=== PATIENT | female | born 1985 | race Asian ===

== ENCOUNTER 2016-11-25 19:04 | Inpatient (IN) | payer OTHER, MEDICAID ==
[~2016-11-25] VITALS: Ht 149.9 cm; Wt 66.0 kg
[~2016-11-25 19:04] MED LIST: IBUP-1222 PO; OXYC-302 PO
[2016-11-25 19:12] VITALS: BP 135/76
[2016-11-25] MEDS ORDERED: NEWBORN KIT ONE (19:22)
[2016-11-25] MEDS ORDERED: LIDOCAINE 1%, 20ML ONE (19:22)
[2016-11-25] MEDS ORDERED: FENTANYL PF 100 MCG/2ML ONE ×2 (19:22→20:20)
[2016-11-25] MEDS ORDERED: MISOPROSTOL 200 MCG TABLET ONE (19:22)
[2016-11-25] MEDS ORDERED: OXYTOCIN 30U/ 0.9% NaCL 500ML 500 ML ONE ×2 (19:23→22:47)
[2016-11-25] MEDS ORDERED: OXYTOCIN 30U/ 0.9% NaCL 500ML 500 ML IV ONE (19:24)
[2016-11-25] MEDS: D5%-LACTATED RINGERS 1,000 ML IV SCH (19:24)
[2016-11-25] MEDS: LACTATED RINGERS 1,000 ML IV SCH ×3 (19:24→20:52)
[2016-11-25] MEDS ORDERED: ONDANSETRON 2MG/ML, 2ML IVPush PRN (19:30)
[2016-11-25] MEDS ORDERED: CALCIUM CARBONATE 500 MG TAB.CHEW PO PRN ×2 (19:30→22:30)
[2016-11-25] MEDS ORDERED: FENTANYL PF 100 MCG/2ML IVPush PRN (19:30)
[2016-11-25] MEDS ORDERED: FENTANYL PF 100 MCG/2ML IV PRN (19:30)
[2016-11-25] MEDS ORDERED: TERBUTALINE 1 MG/ML, 1ML IVPush PRN (19:30)
[2016-11-25 20:05] LABS: HEMOGLOBIN 12.1 g/dL (11.7-16.4)
[2016-11-25] MEDS ORDERED: FENTANYL/BUPIV./NS/PF 250 ML EPIDCONT ONE ×2 (20:19→20:20)
[2016-11-25] MEDS ORDERED: BUPIVACAINE/PF 0.25% ONE (20:19)
[2016-11-25] MEDS ORDERED: BUPIVACAINE 0.25% ONE (20:20)
[2016-11-25] MEDS ORDERED: FENTANYL/BUPIV./NS/PF 250 ML EPIDCONT SCH (20:52)
[2016-11-25] MEDS ORDERED: NALOXONE 0.4 MG/ML, 1ML IVPush PRN (21:00)
[2016-11-25] MEDS ORDERED: EPHEDRINE 50 MG/ML, 1ML IVPush PRN (21:00)
[2016-11-25] MEDS ORDERED: LACTATED RINGERS 1,000 ML IVBOLUS PRN (21:00)
[2016-11-25] MEDS: OXYTOCIN 30U/ 0.9% NaCL 500ML 500 ML IV SCH (22:25)
[2016-11-25] MEDS ORDERED: MISOPROSTOL 200 MCG TABLET PR PRN (22:30)
[2016-11-25] MEDS ORDERED: ONDANSETRON 2MG/ML, 2ML IV PRN (22:30)
[2016-11-25] MEDS ORDERED: OXYcodone/APAP 5/325MG TABLET PO PRN ×2 (22:30)
[2016-11-25] MEDS ORDERED: ONDANSETRON 2MG/ML, 2ML ONE (22:44)
[2016-11-26 00:45] VITALS: BP 106/62
[2016-11-26] MEDS: LACTATED RINGERS 1,000 ML IV SCH ×3 (02:22→12:52)
[2016-11-26] MEDS: IBUPROFEN 600 MG TABLET PO PRN ×2 (03:18→09:11)
[2016-11-26] MEDS: D5%-LACTATED RINGERS 1,000 ML IV SCH ×2 (03:24→11:24)
[2016-11-26 03:30] VITALS: BP 116/62
[2016-11-26 06:11] LABS: HEMOGLOBIN 11.1 g/dL (11.7-16.4)
[2016-11-26 08:10] VITALS: BP 116/68
[2016-11-26] MEDS: OXYTOCIN 30U/ 0.9% NaCL 500ML 500 ML IV SCH (08:25)
[2016-11-26] MEDS: PRENATAL VIT/IRON/FA 1 EACH TABLET PO SCH (09:11)
[2016-11-26] MEDS: DOCUSATE 100 MG CAPSULE PO PRN (09:11)
[2016-11-26 12:05] VITALS: BP 111/67
[2016-11-26 16:00] VITALS: BP 115/68
[2016-11-26 20:20] VITALS: BP 116/73
[2016-11-27 08:15] VITALS: BP 116/63
[2016-11-27] MEDS: DOCUSATE 100 MG CAPSULE PO PRN (08:43)
[2016-11-27] MEDS: PRENATAL VIT/IRON/FA 1 EACH TABLET PO SCH (08:43)
[2016-11-27] MEDS: IBUPROFEN 600 MG TABLET PO PRN (08:43)
[2016-11-27] MEDS ORDERED: OXYC-302 PO (11:14)
== END 2016-11-27 13:25 | disposition home or self-care (01) | DRG 775 ==
LOC: LDOP 19:04 → LDIP 19:29 → 2NW 11-26 00:11
PROVIDERS: ADMIT Obstetrics & Gynecology; ATTEND Obstetrics & Gynecology
PROC: 10E0XZZ Delivery of Products of Conception, External Approach (ICD-10-PCS; principal; 2016-11-25)
PROC: 0HQ9XZZ Repair Perineum Skin, External Approach (ICD-10-PCS; 2016-11-25)
PROC: 00HU33Z Insertion of Infusion Device into Spinal Canal, Percutaneous Approach (ICD-10-PCS; 2016-11-25)
PROC: 3E0R3CZ (ICD-10-PCS; 2016-11-25)
DX: O77.0 Labor and delivery complicated by meconium in amniotic fluid (principal); O76 Abnormality in fetal heart rate and rhythm complicating labor and delivery; O70.0 First degree perineal laceration during delivery; Z37.0 Single live birth; Z3A.37 37 weeks gestation of pregnancy
CPT/HCPCS: 36415; 82803; 85025; 86850; 86900; J2405; J3010; J3490; J2590; J7120

== ENCOUNTER 2018-12-29 18:10 | Emergency (ER) | payer MEDICAID, OTHER ==
[~2018-12-29] VITALS: Ht 149.9 cm; Wt 59.0 kg
--- NOTE | 2018-12-29 18:33 | NUR ---
PATIENT CODE 250, PATIENT HAD SYNCOPAL EPISODE TODAY IN ER LOBBY AT 1805, FRIEND CAUGHT PATIENT BEFORE SHE FELL, DENIES HITTING HEAD, PATIENT DENIES HX, REPORTS SANDOVAL, NAUSEA, NECK PAIN, AND CHEST PRESSURE AT 1300 TODAY AND COUGH X 1 WEEK, DENIES SOB. BLOOD SUGAR-92. A+OX4. LABS DRAWN, AWAITING XRAY. WARM BLANKET PROVIDED, FRIEND AT BEDSIDE, CALL LIGHT WITHIN REACH.
[2018-12-29 18:39] LABS: BASOPHILS # (AUTO) 0.03 x10^3/uL (0-0.1); BASOPHILS % (AUTO) 1 % (0-1); EOSINOPHILS # (AUTO) 0.16 x10^3/uL (0-0.4); EOSINOPHILS % (AUTO) 3 % (1-7); LYMPHOCYTES % (AUTO) 30 % (22-44); MD NO; MEAN CORPUSCULAR HEMOGLOBIN 25.4 pg (27.0-34.8); MEAN CORPUSCULAR HGB CONC 32.2 g/dL (32.4-35.8); MEAN CORPUSCULAR VOLUME 78.9 fL (80-100); MEAN PLATELET VOLUME 7.8 fL (7.4-10.4); MONOCYTES # (AUTO) 0.52 x10^3/uL (0.2-0.8); MONOCYTES % (AUTO) 8 % (2-9); NEUTROPHILS # (AUTO) 3.74 x10^3/uL (1.8-6.8); NEUTROPHILS % (AUTO) 59 % (42-75); PLATELET COUNT 331 x10^3/uL (130-400); RED BLOOD COUNT 4.85 x10^6/uL (3.82-5.3); RED CELL DISTRIBUTION WIDTH 14.2 % (9.6-15.2)
[2018-12-29 18:51] LABS: ALBUMIN 3.7 g/dL (3.4-5.0); ANION GAP 8 mmol/L (5-15); CALCIUM 8.7 mg/dL (8.5-10.1); CHLORIDE 113 mmol/L (98-107); CREATININE 0.77 mg/dL (0.55-1.02)
--- NOTE | 2018-12-29 19:26 | NUR ---
VS UPDATED IN CHART, PATIENT A+OX4, AWAITING CT RESULTS. PATIENT SITTING IN GURNEY TALKING TO FRIEND AT BEDSIDE. CALL LIGHT WITHIN REACH.
--- NOTE | 2018-12-29 19:47 | NUR ---
RESULTS BACK, CHART UP FOR RECHECK.
[2018-12-29] MEDS ORDERED: DIPHENHYDRAMINE 25 MG CAPSULE PO ONE (20:30)
[2018-12-29] MEDS ORDERED: METOCLOPRAMIDE 10MG TABLET PO ONE (20:30)
[2018-12-29] MEDS ORDERED: KETOROLAC 30 MG/1 ML IM ONE (20:30)
[2018-12-29] MEDS ORDERED: METOCLOPRAMIDE 10MG TABLET ONE (20:34)
[2018-12-29] MEDS ORDERED: KETOROLAC 30 MG/1 ML ONE (20:34)
[2018-12-29] MEDS ORDERED: DIPHENHYDRAMINE 25 MG CAPSULE ONE (20:34)
--- NOTE | 2018-12-29 21:03 | NUR ---
REPORT FROM MARY BARROW. PT RESTING. PT TO BE REEVALUATED BY . CALL LIGHT IN REACH. VSS
--- NOTE | 2018-12-29 21:06 | NUR ---
REPORT TO DANIAL VALDEZ. CHART UP FOR RECHECK.
[2018-12-29 21:32] VITALS: BP 139/78
--- NOTE | 2018-12-29 21:53 | NUR ---
Patient given discharge instructions and they have confirmed that they understand the instructions. Patient ambulatory with steady gait.
== END 2018-12-29 21:57 | disposition home or self-care (01) ==
LOC: ED 18:36
DX: R55 Syncope and collapse (principal); R51 Headache; M54.2 Cervicalgia
CPT/HCPCS: 36415; 70450; 71046; 80048; 82040; 84703; 85025; 93005; 96372; 99284; J1885; Q0163; 82962

== ENCOUNTER 2021-04-11 15:47 | Emergency (ER) | payer OTHER ==
[~2021-04-11] VITALS: Ht 152.4 cm; Wt 58.8 kg
[~2021-04-11 15:47] MED LIST changes: -OXYC-302 PO; +OXYC1TAB12 PO
--- NOTE | 2021-04-11 16:02 | NUR ---
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
--- NOTE | 2021-04-11 16:05 | NUR ---
BRITTNEE FROM 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
--- NOTE | 2021-04-11 16:55 | NUR ---
TASK RN: PT SITTING UP ON GURNEY, NO ACUTE DISTRESS NOTED. NO C/O OFFERED. PT AWARE OF WAITING FOR MD EVAL/ORDERS.
[2021-04-11] MEDS ORDERED: KETOROLAC 30 MG/1 ML ONE (17:25)
[2021-04-11] MEDS ORDERED: SODIUM CHLORIDE 0.9% 1,000ML IVBOLUS ONE (17:30)
[2021-04-11] MEDS ORDERED: KETOROLAC 15 MG/1ML IVPush ONE (17:30)
[2021-04-11 17:56] LABS: ANION GAP 6 mmol/L (5-15); CALCIUM 8.6 mg/dL (8.5-10.1); CHLORIDE 109 mmol/L (98-107); CREATININE 0.85 mg/dL (0.55-1.02)
[2021-04-11 17:58] LABS: BASOPHILS % (AUTO) 0 % (0-1); EOSINOPHILS % (AUTO) 0 % (1-7); LYMPHOCYTES % (AUTO) 19 % (22-44); MEAN CORPUSCULAR HEMOGLOBIN 24.8 pg (27.0-34.8); MEAN CORPUSCULAR HGB CONC 32.8 g/dL (32.4-35.8); MEAN PLATELET VOLUME 7.8 fL (7.4-10.4); MONOCYTES % (AUTO) 7 % (2-9); NEUTROPHILS % (AUTO) 73 % (42-75); PLATELET COUNT 337 x10^3/uL (130-400); RED BLOOD COUNT 4.92 x10^6/uL (3.82-5.3); RED CELL DISTRIBUTION WIDTH 13.7 % (9.6-15.2)
[2021-04-11 19:46] VITALS: BP 131/78
== END 2021-04-11 19:51 | disposition home or self-care (01) ==
LOC: ED 15:57
DX: R55 Syncope and collapse (principal); R51.9 Headache, unspecified; Z20.822 Contact with and (suspected) exposure to COVID-19; I10 Essential (primary) hypertension
CPT/HCPCS: 36415; 80048; 84703; 85025; 93005; 96361; 96374; 99284; J1885; J7030; U0003; U0005

== ENCOUNTER 2021-04-23 10:35 | Emergency (ER) | payer OTHER ==
[~2021-04-23] VITALS: Ht 162.6 cm; Wt 70.0 kg
--- NOTE | 2021-04-23 10:52 | NUR ---
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
[2021-04-23] MEDS ORDERED: SODIUM CHLORIDE FLUSH 10ML SYR IVF ONE (11:00)
[2021-04-23] MEDS ORDERED: SODIUM CHLORIDE 0.9% 1,000ML IVBOLUS ONE (11:00)
[2021-04-23] MEDS ORDERED: COVID-19 VACC,MRNA(MODERNA)/PF 100 MCG/0.5ML IM-VACC ONE ×2 (11:00→11:30)
--- NOTE | 2021-04-23 11:01 | NUR ---
PT BIB EMS TODAY FROM [employer] WHERE PT WORKS. PT REPORTS FEELING LIGHT HEADED LIKE SHE WAS GOING TO PASS OUT. PT REPORTS SIMILAR SYMPOMS AND SUBSEQUENT VISIT TO ED FOR SAME LAST WEEK. PT REPORTS DOUBLING HER BP MEDICATION THIS WEEK BECAUSE HER VALUES AT HOME HAVE BEEN "HIGH". PER EMS, EKG UNREMARKABLE EN ROUTE, VSS, FSBS 102. PIV ACCESS ESTABLISHED BY MEDIC EN ROUTE TO [facility] ED. UPON ARRIVAL TO [facility] ED, PT ATTACHED TO VS MONITORS. VSS AT THIS TIME. DR GAN AT FOR PT HISTORY AND ASSESSMENT. PT CONSENTS TO FIRST DOSE COVID-19 VACCINE AT THIS TIME. AWAITING ORDERS FROM ERP. PT HAS CALL LIGHT WITHIN REACH AND VERBALIZES UNDERSTANDING OF POC.
[2021-04-23 11:30] LABS: ALBUMIN 4.1 g/dL (3.4-5.0); ANION GAP 8 mmol/L (5-15); CALCIUM 9.3 mg/dL (8.5-10.1); CHLORIDE 104 mmol/L (98-107); CREATININE 0.78 mg/dL (0.55-1.02)
[2021-04-23 11:34] LABS: BASOPHILS % (AUTO) 1 % (0-1); EOSINOPHILS % (AUTO) 0 % (1-7); LYMPHOCYTES % (AUTO) 14 % (22-44); MEAN CORPUSCULAR HEMOGLOBIN 24.9 pg (27.0-34.8); MEAN PLATELET VOLUME 7.9 fL (7.4-10.4); MONOCYTES % (AUTO) 6 % (2-9); NEUTROPHILS % (AUTO) 79 % (42-75); PLATELET COUNT 397 x10^3/uL (130-400); RED BLOOD COUNT 5.37 x10^6/uL (3.82-5.3); RED CELL DISTRIBUTION WIDTH 13.8 % (9.6-15.2)
[2021-04-23 11:35] LABS: TROPONIN I < 0.015 ng/mL (0.000-0.045)
--- NOTE | 2021-04-23 11:51 | NUR ---
PT IN CT AT THIS TIME.
--- NOTE | 2021-04-23 12:23 | NUR ---
us at bs with pt at this time.
[2021-04-23 12:37] VITALS: BP 111/74
--- NOTE | 2021-04-23 12:58 | NUR ---
pt vaccinated for covid-19. informed consent obtained. pt provided f/u information and fact sheet and verbalizes understanding of need for 2nd dose with health department.
--- NOTE | 2021-04-23 13:33 | NUR ---
REPORT OF PT TO DANIAL NGUYEN. ALL QUESTIONS ANSWERED.
--- NOTE | 2021-04-23 14:37 | NUR ---
Patient given discharge instructions and they have confirmed that they understand the instructions. Patient ambulatory with steady gait.
== END 2021-04-23 14:41 | disposition home or self-care (01) ==
LOC: ED 14:32
DX: R55 Syncope and collapse (principal); I10 Essential (primary) hypertension; R42 Dizziness and giddiness; R53.1 Weakness; R94.31 Abnormal electrocardiogram [ECG] [EKG]; Z23 Encounter for immunization
CPT/HCPCS: 0011A; 36415; 70450; 80048; 82040; 84484; 85025; 91301; 93005; 93880; 96360; 99285; J7030; 90471